=== PATIENT | male | born 1940 | race Caucasian/White ===

== ENCOUNTER 2019-08-08 22:00 | Inpatient (IN) | payer MEDICARE, BC ==
--- NOTE | 2019-08-08 22:28 | ED.PDOC ---
History of Present Illness - General Chief Complaint: Syncope/Near Syncope Stated Complaint: vomiting, short of breath, syncope Time Seen by Provider: 08/08/19 22:04 Source: patient, family - History of Present Illness Initial Comments: 78 her old male presents to the emergency department with his after 2 syncopal episodes with vomiting. The patient had a colonoscopy performed in [place] earlier this morning, it was uneventful and afterwards he ate lunch and as they were driving towards home he complained of a severe headache and vomiting. The reports after his vomiting he "passed out" this lasted for a few seconds and she was able to get him sitting up and then a few minutes later he had another episode where he leaned backwards after vomiting and she saw "bubbles coming out of his throat" and that he appeared to be not breathing. She did palpate a pulse that says that he was diaphoretic and apneic. Her estimation was that this lasted for 45 seconds to a minute and then he coughed and was able to clear his secretions. Following the second episode he was taken to [facility] where he was seen and evaluated. Reportedly on chest x-ray it was normal however while in the department he spiked a fever and a CT of abdomen and pelvis showed a pneumonia. They initially attempted to transfer the patient to [facility] however due to ear holes were unable to accept. They recommended admission for the patient to their hospital and because the only records available were semi-private and the patient's would not be able to stay in the room with him, so they decided to leave and has now presented to our emergency department. He is complaining of a mild headache but denies any other specific symptoms. He denies any history of headaches in the past. He denies any abdominal pain currently. Symptoms are currently mild in severity. Allergies/Adverse Reactions: Allergies NO KNOWN ALLERGY Allergy (Verified 08/08/19 22:23) Review of Systems - Review of Systems Constitutional: States: fever. Denies: weakness EENTM: Denies: nose congestion, throat swelling Respiratory: States: cough, short of breath Cardiology: States: syncope. Denies: chest pain Gastrointestinal/Abdominal: States: nausea, vomiting. Denies: abdominal pain Genitourinary: Denies: dysuria, hematuria Musculoskeletal: Denies: joint swelling, muscle stiffness Skin: Denies: lesions, rash Neurological: States: headache. Denies: numbness, weakness Family Medical History - Family History Mother Family History: Unknown Physical Exam - Physical Exam General Appearance: Agitated, Alert, No apparent distress, Well Developed, Well Nourished Eye Exam: bilateral normal Ears, Nose, Throat: normal ENT inspection, normal pharynx Neck: supple, normal inspection Respiratory: no respiratory distress, no accessory muscle use, crackles - L base Cardiovascular/Chest: regular rate, rhythm, no edema Gastrointestinal/Abdominal: normal bowel sounds, non tender, soft Neurologic: alert, normal mood/affect, oriented x 3, other - Moves all extremities without focal deficits. Skin Exam: normal color, warm/dry Progress - Progress Progress: 08/08/19 22:30 They do not have any of the lab or imaging studies from the previous hospital, so they have been asked to sign a release and the records have been requested from [facility]. 08/08/19 23:15 CT Head results discussed with pt and . Still waiting on ED records from the other facility at this time to make calls about admission. 08/08/19 23:39 The patient's findings from the previous ER as well as a CT head were discussed with Nathan Hong for the hospitalist service here who agrees with plan for admission and continued monitoring. She agrees with continued IV fluids and we discussed clindamycin for antibiotics for possible aspiration. This plan was discussed with the patient and his at the bedside who voice understanding and agree. - Results/Orders Results/Orders: CT Head: IMPRESSION: No acute intracranial findings. Electronically signed by: Ashvin Barton MD 08/08/2019 10:53 PM [employer] Records were obtained from [facility] with the following findings. CBC: WBC 16, hemoglobin 16.2, hematocrit 48.1, platelets 188 CMP: Glucose 90, creatinine 0.9, BUNs 15, sodium 144, potassium 4.0, CO2 25, anion gap 17. Total bili was very mildly elevated at 2.1 the remainder of the liver function tests are within normal limits. Influenza A and B were negative. Initial lactic acid at 1549 was elevated at 3.38, second at 1751 was 1.27 and third at 1949 was 1.17. Lipase 28. PT 13.2, INR 1.0. Initial troponin 1601 was <0.010. Repeat [address] of the abdomen and pelvis with IV contrast demonstrated #1 infiltrates throughout the left mid lung and left lower lobe suspicion for aspiration. #2 no evidence of perforation. Diverticulitis in the colon. #3 subtle 2.2 x 1.9 cm solid appearing mass in the left kidney suspicious for renal cell carcinoma. #4 nonobstructing left renal stone #5 bilateral inguinal hernias 1 view of the abdomen x-ray nonspecific bowel gas pattern without evidence of obstruction. Two-view chest x-ray no acute process. The patient was treated with IV normal saline 2224 mL as well as cefepime and vancomycin. Departure - Departure Clinical Impression: Syncope Qualifiers: Syncope type: unspecified Qualified Code(s): R55 - Syncope and collapse Aspiration pneumonia Qualifiers: Aspiration pneumonia type: due to vomit Laterality: left Lung location: lower lobe of lung Qualified Code(s): J69.0 - Pneumonitis due to inhalation of food and vomit Headache Qualifiers: Headache type: unspecified Headache chronicity pattern: acute headache Intractability: not intractable Qualified Code(s): R51 - Headache Time of Disposition: 23:41 Disposition: Admit Patient Decision To Admit - Decistion To Admit Decision to Admit Date: 08/08/19 Decision to Admit Time: 23:40
--- NOTE | 2019-08-08 22:55 | CT ---
CLINICAL HISTORY: H/A and vomiting COMPARISON: None. TECHNIQUE: CT HEAD WITHOUT IV CONTRAST on 08/08/2019 10:20 PM [employer] TEST TECHNICIAN This exam was performed according to our departmental dose-optimization program, which includes automated exposure control, adjustment of the mA and/or kV according to patient size and/or use of iterative reconstruction technique. FINDINGS: There is no acute hemorrhage, mass effect or midline shift. Cornejo-white differentiation is preserved. There is no hydrocephalus. There is no significant volume loss for age. There are mild patchy hypodensities within the periventricular and subcortical white matter, consistent with microangiopathic ischemic changes. The calvarium is intact. Orbits and globes are unremarkable. The paranasal sinuses are clear. Mastoid air cells are clear. IMPRESSION: No acute intracranial findings. Electronically signed by: Ashvin Barton MD 08/08/2019 10:53 PM [employer] TEST TECHNICIAN
[2019-08-08] MEDS ORDERED: SODIUM CHLORIDE 0.9% 1000ML 1,000 ML IVS PRN (23:42)
[2019-08-08] MEDS ORDERED: CLINDAMYCIN IV 900MG 50 ML IVPB ONE (23:44)
[2019-08-08] MEDS: CLINDAMYCIN IV 900MG 900 MG in PREMIX BAG 1 BAG IVPB SCH (23:50)
[2019-08-09] MEDS ORDERED: ONDANSETRON INJ 4 MG/2 ML VIAL IV PRN (04:10)
[2019-08-09] MEDS ORDERED: ALBUTEROL SULFATE 2.5 MG/3 ML VIAL NEB PRN (04:10)
[2019-08-09] MEDS ORDERED: IV SET AND CAP CHANGE INJ INJ SCH (04:30)
[2019-08-09] MEDS ORDERED: CLINDAMYCIN IV 900MG 0 ML IVPB ONE (05:35)
[2019-08-09] MEDS: levoFLOXacin 750MG IV 750 MG in PREMIX BAG 1 BAG IVPB SCH (06:10)
[2019-08-09] MEDS: CLINDAMYCIN IV 900MG 900 MG in PREMIX BAG 1 BAG IVPB SCH ×3 (07:40→17:41)
[2019-08-09] MEDS ORDERED: CLINDAMYCIN IV 900MG 50 ML IVPB ONE ×2 (07:43→18:33)
[2019-08-09] MEDS: ALBUTEROL SULFATE 2.5 MG/3 ML VIAL NEB SCH ×4 (09:29→20:57)
--- NOTE | 2019-08-09 10:37 | HP ---
SUPERVISING PHYSICIAN: Nick Mariano MD CHIEF COMPLAINT: Syncope. HISTORY OF PRESENT ILLNESS: This is a 78 year-old male patient who came to the Emergency Department after his witnessed two episodes of syncope with vomiting. The patient has gone to [place] to have a colonoscopy. Two days prior to his bowel prep, the patient admitted he had felt some mild chills and some upper respiratory symptoms. He actually had a subjective fever and just was feeling poorly in general but he did attribute that to his bowel prep. He went to [place] on the day prior to admission and had a routine colonoscopy. Reportedly, there were no problems. After the colonoscopy, he was discharged. He and his went to eat lunch. He said the food was somewhat greasy and spicy. After they had eaten, he said he had not felt well, his stomach was somewhat upset and they were driving on their way back to [place] and as they were coming through [place], [place], he actually became somewhat faint and became quite nauseated. He actually projectile vomited in the car and his stopped at a gas station and got cleaned up. Shortly after resuming their trip, he again became nauseated and had another episode of projectile vomiting. Shortly after his episode, his reported that he lost consciousness and was laying back in his seat in the car and he had emesis in his mouth. She pulled over and tried to arouse him. He was slow to come around but eventually woke up and he convinced her to take him to the hospital instead of calling 911. She went to the Emergency Room in [place]. The patient is fairly healthy and has very few medical problems. After waiting several hours in the Emergency Room there, he was admitted for aspiration pneumonia but he was to be admitted to a semi- private room and his would be unable to stay with him. Given the circumstances of his syncope, she was very uneasy with the patient staying by himself in the room without her staying in the room with him so she brought the patient to our Emergency Room. His records from [place] were requested and sent to the hospital. His initial vital signs in the Emergency Room showed a temperature of 97, heart rate 69, blood pressure 122/76, respiratory rate of 18, oxygen saturation 97%. Lab showed WBC of 14,000 with hemoglobin of 12.5, hematocrit 37, he had a left shift on his differential. His electrolytes were basically within normal limits with the exception of calcium at 8.1, total bilirubin 2.3. The patient does have a history of hyperbilirubinemia of unknown etiology. Due to his syncopal episode, a CTof the was also done and showed no acute intracranial findings. He was given some fluids in the Emergency Room as well as started on clindamycin and he was also given some Zofran and I was called for hospital admission. PAST MEDICAL HISTORY: 1. Gastroesophageal reflux disease. 2. Osteoarthritis. 3. Seasonal allergies. 4. Low testosterone. PAST SURGICAL HISTORY: Unknown. CURRENT MEDICATIONS: 1. Prilosec. 2. Arimidex. 3. Testosterone. 4. Vitamin B12. 5. Meloxicam. 6. Fluticasone. ALLERGIES: No known drug allergies. FAMILY HISTORY: SOCIAL HISTORY: He lives in [place], he is . He quit smoking about 50 years ago. He denies any ETOH or illicit drug use. REVIEW OF SYSTEMS: GENERAL: Positive for weakness, fever and chills, negative for weight changes. HEENT: Negative for ear pain, vision changes, sore throat or sinus symptoms. RESPIRATORY: Positive for coughing, shortness of breath. Negative for wheezing. CARDIAC: Negative for chest pain, palpitations, tachycardia. GI: Positive for nausea and vomiting. Negative for diarrhea, constipation. GENITOURINARY: Negative for hematuria, dysuria, polyuria. MUSCULOSKELETAL: Negative for arthralgias, myalgias. SKIN: Negative for lesions or rashes. NEUROLOGICAL: Negative for headaches, seizures or numbness. PHYSICAL EXAMINATION: VITAL SIGNS: Temperature 99.3, heart rate 77, blood pressure 107/57, respiratory rate 18, oxygen saturation 97%. GENERAL: This is a 78 year-old male patient sitting up in his hospital bed. He looks younger than his stated age. HEENT: Normocephalic and atraumatic. Pupils are equal and reactive. Oropharynx clear. NECK: Supple without mass. CHEST: Diminished at the bases, otherwise clear to auscultation. Chest has equal rise and fall with inspiration and expiration. CARDIOVASCULAR: Regular rate and rhythm. ABDOMEN: Soft, non-tender, nondistended. Bowel sounds are positive. EXTREMITIES: No cyanosis, clubbing, or edema. NEUROLOGIC: He is awake, alert, and oriented x3. Cranial nerves II through XII are grossly intact. LABORATORY: Labs and films are as per the history of present illness. ASSESSMENT: 1. Aspiration pneumonia. 2. Loss of consciousness x2 resulting in #1 status post colonoscopy procedure. 3. Upper respiratory with chills and subjective fever x2 days prior to his procedure. 4. Gastroesophageal reflux disease. 5. Seasonal allergies. 6. Osteoarthritis. PLAN: The patient has been admitted to the hospital. I have continued the clindamycin from the Emergency Room as well as added Levaquin. He will have aggressive pulmonary hygiene including p.r.n. and scheduled nebulizer treatments. He has Lovenox for DVT prophylaxis. His home medications are restarted. I have ordered lab and x-ray for in the morning. We will continue to monitor closely and followup as needed. #[id number] [facility]
[2019-08-09] MEDS ORDERED: PANTOPRAZOLE SODIUM IV 40 MG VIAL IV SCH (12:07)
[2019-08-09] MEDS ORDERED: NON-FORMULARY MEDICATION 1 EA MIS (Anastrozole [Arimidex] 1 MG) PO SCH (12:15)
[2019-08-09] MEDS: FLUTICASONE PROP 0.05% NASAL 16 GM BTTL BNAS SCH (13:00)
[2019-08-09] MEDS ORDERED: IBUPROFEN 400 MG TAB PO PRN (19:41)
[2019-08-09] MEDS: ENOXAPARIN SODIUM 40 MG/0.4 ML SYG SUBCU SCH (21:54)
[2019-08-10] MEDS ORDERED: CLINDAMYCIN IV 900MG 50 ML IVPB ONE ×4 (00:01→20:53)
[2019-08-10] MEDS: CLINDAMYCIN IV 900MG 900 MG in PREMIX BAG 1 BAG IVPB SCH ×3 (00:02→18:25)
[2019-08-10] MEDS ORDERED: PANTOPRAZOLE SODIUM TAB 40 MG PO ONE (03:04)
[2019-08-10] MEDS: PANTOPRAZOLE SODIUM TAB 40 MG PO SCH (06:05)
[2019-08-10] MEDS: levoFLOXacin 750MG IV 750 MG in PREMIX BAG 1 BAG IVPB SCH (06:06)
--- NOTE | 2019-08-10 07:47 | RAD ---
CHEST, TWO VIEW, XR CLINICAL HISTORY: Pneumonia COMPARISON: None. TECHNIQUE: PA and lateral Chest. FINDINGS: [Normal cardiac size. Pulmonary vasculature appears normal. Normal cardiomediastinal contours. Lungs are hyperinflated. There is minimal lingula atelectasis/scar. Pleural spaces are clear. Unremarkable soft tissues and bones.] IMPRESSION: 1. No acute chest disease. Electronically signed by: Dayana Mock DO 08/10/2019 7:45 AM [employer]
[2019-08-10] MEDS: ALBUTEROL SULFATE 2.5 MG/3 ML VIAL NEB SCH ×4 (08:48→20:45)
[2019-08-10] MEDS: FLUTICASONE PROP 0.05% NASAL 16 GM BTTL BNAS SCH (09:09)
[2019-08-10] MEDS ORDERED: POTASSIUM CHLORIDE 20 MEQ TAB PO ONE (09:45)
[2019-08-10] MEDS ORDERED: POTASSIUM CHLORIDE 20 MEQ TAB ONE (12:21)
[2019-08-10] MEDS: MELOXICAM 7.5 MG TAB PO SCH (12:43)
[2019-08-10] MEDS ORDERED: ALUMINUM & MAGNESIUM HYDROXIDE 30 ML UD PO PRN (17:52)
[2019-08-10] MEDS: ENOXAPARIN SODIUM 40 MG/0.4 ML SYG SUBCU SCH (21:37)
[2019-08-11] MEDS: SODIUM CHLORIDE 0.9% (FLUSH) 10 ML SYG IV PRN ×2 (00:32→06:03)
[2019-08-11] MEDS: CLINDAMYCIN IV 900MG 900 MG in PREMIX BAG 1 BAG IVPB SCH ×2 (00:32→08:38)
[2019-08-11] MEDS: levoFLOXacin 750MG IV 750 MG in PREMIX BAG 1 BAG IVPB SCH (06:02)
[2019-08-11] MEDS: PANTOPRAZOLE SODIUM TAB 40 MG PO SCH (06:02)
[2019-08-11] MEDS ORDERED: CLINDAMYCIN IV 900MG 50 ML IVPB ONE (07:51)
[2019-08-11] MEDS: MELOXICAM 7.5 MG TAB PO SCH (08:38)
[2019-08-11] MEDS: FLUTICASONE PROP 0.05% NASAL 16 GM BTTL BNAS SCH (08:38)
[2019-08-11] MEDS: ALBUTEROL SULFATE 2.5 MG/3 ML VIAL NEB SCH ×2 (09:00→13:20)
[2019-08-11 09:47] VITALS: BP 132/76; TEMP 97.6; O2SAT 97
--- NOTE | 2019-08-11 10:16 | PN ---
DATE: 08/10/2019 SUPERVISING PHYSICIAN: Nick Mariano MD SUBJECTIVE: The patient is sitting up in bed. His is at the bedside. We discussed his condition and his discharge planning. He denies any shortness of breath but he also has not ambulated much other than to the bathroom. I have encouraged him to get up and walk in the hallways. Also, he also denies chest pain, nausea or vomiting, dizziness or headaches. OBJECTIVE: VITAL SIGNS: Temperature 98.6, heart rate 75, blood pressure 141/72, respiratory rate 18, oxygen saturation 94% on room air. RESPIRATORY: Essentially clear to auscultation bilaterally. He is somewhat diminished in the right middle lobe area. CARDIAC: Regular rate and rhythm. ABDOMEN: Soft, nondistended, non-tender, bowel sounds are positive. NEURO: He is awake, alert, and oriented x3. LABORATORY: WBC 7.1, hemoglobin 11.8, hematocrit 33.8. Electrolytes are basically within normal limits with the exception his potassium is slightly low at 3.4. Bilirubin is improved to 1.1. His chest x-ray shows no acute chest disease. All other labs and films have been reviewed via the EMR. ASSESSMENT: 1. Aspiration pneumonia. 2. Loss of consciousness x2 resulting in #1 status post colonoscopy procedure. 3. Upper respiratory with chills and subjective fever x2 days prior to his procedure. 4. Gastroesophageal reflux disease. 5. Seasonal allergies. 6. Osteoarthritis. 7. Hyperchronic hyperbilirubinemia of unknown etiology. His bilirubin level has improved. PLAN: We will continue present supportive care. At this point, if he continues to improve clinically and has no problems we should be able to discharge him tomorrow. He received some potassium supplementation and I will hold on any labs tomorrow. He will be discharged home on clindamycin and Levaquin and we will continue to monitor him closely and follow as needed. #[id number] [facility]
--- NOTE | 2019-08-16 14:26 | DS ---
SUPERVISING PHYSICIAN: Nick Mariano MD DISCHARGE DIAGNOSIS: 1. Aspiration pneumonia. 2. Loss of consciousness x2 resulting in #1 status post colonoscopy procedure. 3. Upper respiratory with chills and subjective fever x2 days prior to his procedure. 4. Gastroesophageal reflux disease. 5. Seasonal allergies. 6. Osteoarthritis. 7. Chronic hyperbilirubinemia of unknown etiology. His bilirubin level has improved. HISTORY OF PRESENT ILLNESS: This is a 78-year-old male patient who came to the Emergency Department after his witnessed two episodes of syncope with vomiting. The patient has gone to [place] to have a colonoscopy. Two days prior to his bowel prep, the patient admitted he had felt some mild chills and some upper respiratory symptoms. He actually had a subjective fever and just was feeling poorly in general but he did attribute that to his bowel prep. He went to [place] on the day prior to admission and had a routine colonoscopy. Reportedly, there were no problems. After the colonoscopy, he was discharged. He and his went to eat lunch. He said the food was somewhat greasy and spicy. After they had eaten, he said he had not felt well, his stomach was somewhat upset and they were driving on their way back to [place] and as they were coming through [place], [place], he actually became somewhat faint and became quite nauseated. He actually projectile vomited in the car and his stopped at a gas station and got cleaned up. Shortly after resuming their trip, he again became nauseated and had another episode of projectile vomiting. Shortly after his episode, his reported that he lost consciousness and was laying back in his seat in the car and he had emesis in his mouth. She pulled over and tried to arouse him. He was slow to come around but eventually woke up and he convinced her to take him to the hospital instead of calling 911. She went to the Emergency Room in [place]. The patient is fairly healthy and has very few medical problems. After waiting several hours in the Emergency Room there, he was admitted for aspiration pneumonia but he was to be admitted to a semi- private room and his would be unable to stay with him. Given the circumstances of his syncope, she was very uneasy with the patient staying by himself in the room without her staying in the room with him so she brought the patient to our Emergency Room. His records from [place] were requested and sent to the hospital. His initial vital signs in the Emergency Room showed a temperature of 97, heart rate 69, blood pressure 122/76, respiratory rate of 18, oxygen saturation 97%. Lab showed WBC of 14,000 with hemoglobin of 12.5, hematocrit 37, he had a left shift on his differential. His electrolytes were basically within normal limits with the exception of calcium at 8.1, total bilirubin 2.3. The patient does have a history of hyperbilirubinemia of unknown etiology. Due to his syncopal episode, a CT of the was also done and showed no acute intracranial findings. He was given some fluids in the Emergency Room as well as started on clindamycin and he was also given some Zofran and I was called for hospital admission. HOSPITAL COURSE: The patient was admitted to the hospital. I have continued the clindamycin and added Levaquin. The pneumonia guidelines were initiated and he had aggressive pulmonary hygiene including p.r.n. and scheduled nebulizer treatments. He also had Lovenox for DVT prophylaxis. His home medications were restarted. He improved clinically over the next 24 hours as well as his respiratory issues improved. His main complaint was that he had a burning in his throat and was given some Maalox. He was encouraged to ambulate in the hallway. He received potassium supplementation and then was able to walk in the hallways without shortness of breath or oxygen. He will be discharged home today in stable condition. LABORATORY: Laboratory and radiology studies from [place] had been scanned into his chart and can be reviewed there. Additional laboratory studies showed a WBC 14,000 and improved to 7,100. Hemoglobin stable at 11.8, hematocrit 33.8. Chemistries are within normal limits with potassium low which he received supplementation. Bilirubin was high on admission at 2.3 and improved to 1.1. He does have a history of hyperbilirubinemia. RADIOLOGY: Chest x-ray showed no acute chest disease. DISCHARGE PLAN: The patient will be discharged home in stable condition. He is to resume his previous diet and increase his activity as tolerated. In addition to his routine home medications, he is to take a probiotic twice daily as well as to take clindamycin and Levaquin. He is to followup with his primary care physician in the next 1 to 2 weeks. He is to return to the hospital or followup with his primary care physician for any problems or complications. DISCHARGE MEDICATIONS: 1. Meloxicam. 2. Arimidex. 3. Omeprazole. 4. Flonase nasal spray. 5. Cyanocobalamin. 6. Testosterone Enanthate. 7. Maalox. 8. Align. 9. Clindamycin. 10. Levaquin. #[id number] [facility]
== END 2019-08-11 12:25 | disposition home or self-care (01) | DRG 179 ==
LOC: ER 22:00 → OBSVTOIN 08-09 00:01 → MS 08-09 00:01
PROVIDERS: ADMIT Nurse Practitioner Acute Care; ATTEND Nurse Practitioner Acute Care
DX: J69.0 Pneumonitis due to inhalation of food and vomit (principal); E87.6 Hypokalemia; R55 Syncope and collapse; R51 Headache; K21.9 Gastro-esophageal reflux disease without esophagitis; J30.2 Other seasonal allergic rhinitis; M19.90 Unspecified osteoarthritis, unspecified site; E80.6 Other disorders of bilirubin metabolism; E29.1 Testicular hypofunction; Z98.890 Other specified postprocedural states; Z79.1 Long term (current) use of non-steroidal anti-inflammatories (NSAID); Z79.899 Other long term (current) drug therapy; Z87.891 Personal history of nicotine dependence

== ENCOUNTER → 2019-09-17 | Outpatient (CLI) | payer MEDICARE | LOC: GMA MATASK 16:56 | PROVIDERS: ATTEND Family Medicine | DX: K21.0 Gastro-esophageal reflux disease with esophagitis (principal) ==

== ENCOUNTER → 2020-01-08 | Outpatient (CLI) | payer MEDICARE | LOC: GMA MATASK 10:44 | PROVIDERS: ATTEND Family Medicine | DX: Z12.5 Encounter for screening for malignant neoplasm of prostate (principal); R53.83 Other fatigue; Z13.6 Encounter for screening for cardiovascular disorders | CPT/HCPCS: 84443; 84550; G0103 ==

== ENCOUNTER 2020-01-16 22:53 | Emergency (ER) | payer MEDICARE ==
[2020-01-16] MEDS ORDERED: KETOROLAC TROMETHAMINE INJ 30 MG/ML VIAL ONE (23:15)
[2020-01-16] MEDS ORDERED: KETOROLAC TROMETHAMINE INJ 30 MG/ML VIAL IV ONE (23:18)
[2020-01-16] MEDS ORDERED: SODIUM CHLORIDE 0.9% 1000ML 1,000 ML IVS ONE (23:27)
[2020-01-16] MEDS ORDERED: TAMSULOSIN 0.4 MG CAP PO ONE (23:27)
[2020-01-16] MEDS ORDERED: PROMETHAZINE HCL INJ 25 MG in SODIUM CHLORIDE 0.9% 50ML 50 ML IVPB ONE (23:27)
[2020-01-16] MEDS ORDERED: HYDROcodone 7.5MG/APAP 325MG 1 EA TAB PO ONE (23:45)
[2020-01-17] MEDS ORDERED: HYDROmorphone HCL INJ 2 MG/ML VIAL IV ONE ×2 (00:46→01:21)
--- NOTE | 2020-01-17 01:00 | ED.PDOC ---
History of Present Illness - General Chief Complaint: Problem Time Seen by Provider: 01/16/20 23:26 Source: patient Exam Limitations: no limitations - History of Present Illness Initial Comments: The patient is a 79-year-old male presenting to the emergency room secondary to left flank pain that actually started more in the lower left abdomen but gradually moved to the left flank. He has had some nausea with it. Pain did get very severe. He did have diaphoresis. He had pain radiating down to the groin and testicle. Pain started about 5 hours prior to arrival. Patient had urinary frequency with minimal urine output. No symptoms prior. No history of kidney stones prior. Timing/Duration: 4-6 hours Severity: severe Improving Factors: nothing Worsening Factors: nothing Associated Symptoms: diaphoresis, nausea/vomiting Allergies/Adverse Reactions: Allergies NO KNOWN ALLERGY Allergy (Verified 08/10/19 01:48) Home Medications: Ambulatory Orders Anastrozole [Arimidex] 1 mg PO MOWEFR 08/09/19 Cyanocobalamin Inj [Vitamin B-12 Inj] 1,000 mcg IM WKLY 08/09/19 Fluticasone Prop 0.05% Nasal [Flonase Nasal [place]] 1 puff ALVA DAILY 08/09/19 Meloxicam 15 mg PO DAILY 08/09/19 Omeprazole 20 mg PO DAILY 08/09/19 Testosterone Enanthate [Xyosted] 80 mg SC WKLY 08/09/19 Aluminum & Magnesium Hydroxide [Maalox] 30 ml PO Q4H PRN ud 08/11/19 Bifidobacterium Infantis [Align] 4 mg PO BID #60 capsule 08/11/19 Clindamycin HCl [Cleocin] 600 mg PO Q8H #48 capsule 08/11/19 levoFLOXacin [Levaquin] 500 mg PO DAILY #5 tab 08/11/19 Tamsulosin HCl [Flomax] 0.4 mg PO DAILY #7 cap 01/17/20 Tramadol HCl 50 mg PO Q8HR PRN #20 tab 01/17/20 Review of Systems - Review of Systems Constitutional: States: no symptoms reported EENTM: States: no symptoms reported Respiratory: States: no symptoms reported Cardiology: States: no symptoms reported Gastrointestinal/Abdominal: States: abdominal pain, nausea Genitourinary: States: no symptoms reported Musculoskeletal: States: back pain Skin: States: no symptoms reported Neurological: States: no symptoms reported Endocrine: States: no symptoms reported All other Systems: No Change from Baseline Past Medical History (General) - Patient Medical History Hx Seizures: No Hx Stroke: No Hx Dementia: No Hx Asthma: No Hx of COPD: No Hx Cardiac Disorders: No Hx Congestive Heart Failure: No Hx Pacemaker: No Hx Hypertension: No Hx Thyroid Disease: No Hx Diabetes: No Hx Gastroesophageal Reflux: Yes Hx Renal Disease: No Hx Cancer: No Hx of HIV: No Hx Hepatitis C: No Hx MRSA: No Surgical History: cholecystectomy, other - Vaccination History Hx Tetanus, Diphtheria Vaccination: Yes Hx Influenza Vaccination: Yes Hx Pneumococcal Vaccination: Yes - Social History Hx Tobacco Use: Yes Hx Chewing Tobacco Use: No Hx Alcohol Use: No Hx Substance Use: No Hx Substance Use Treatment: No Hx Depression: No Feels Threatened In Home Enviroment: No Feels Threatened In a Relationship: No Hx Physical Abuse: No Hx Emotional Abuse: No Hx Suspected Abuse: No - Female History Patient is a Female of Child Bearing Age (10 -59 yrs old): No - Triage Comment ED Triage Comment: The patient was in obvious discomfort and compalining of left flank pain and nausea. Family Medical History - Family History Mother Family History: Unknown Physical Exam - Physical Exam General Appearance: Alert, Obvious distress Eye Exam: bilateral normal Ears, Nose, Throat: hearing grossly normal Neck: non-tender, supple Respiratory: no respiratory distress, no accessory muscle use Cardiovascular/Chest: normal peripheral pulses, no edema Peripheral Pulses: radial,right: 2+, radial,left: 2+ Gastrointestinal/Abdominal: non tender, soft Rectal Exam: deferred Back Exam: CVA tenderness (L) Extremity: normal range of motion, non-tender, normal inspection, no pedal e tejal, normal capillary refill 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 Symptoms as well as urinalysis are consistent. The patient has received several doses of pain m edications along with Toradol and nausea medications. He is relaxing more comfortably at this time. He also received a dose of Flomax and Valium for muscle relaxing purposes along with IV fluids. The patient will be discharged with a few tablets of hydrocodone for use for the rest of the night and will have a prescription for tramadol for outpatient use for pain control. Additionally Aleve can be used to help reduce discomfort over the coming days and he will be written for a weeks worth of Flomax to aid in passage of the stone. Obviously if his condition is worsening rather than improving, then additional work-up may be warranted. He is to otherwise keep routine follow-up with his primary care doctor. ER warnings are given. jaymie goodwin [phone] 01/17/20 02:26 [facility] consulted - Results/Orders Results/Orders: 01/16/20 23:15 EKG STAT shows sinus bradycardia at 48 bpm. Normal axis. Normal R wave progression. No definitive ST segment or T wave changes indicative of acute ischemia. criteria is present for LVH. Normal QT interval. Laboratory Results - last 24 hr 01/17/20 00:10 Urine Color Yellow Urine Appearance Sl cloudy Urine pH 5.5 Ur Specific [place] >= 1.030 Urine Protein 30 Urine Glucose (UA) Negative Urine Ketones 80 H Urine Blood Large H Urine Nitrite Negative Urine Bilirubin Negative Urine Urobilinogen 0.2 Ur Leukocyte Esterase Negative Urine RBC 30-40 H Urine WBC 1-3 Ur Epithelial Cells 0 Urine Bacteria 0 Urine Mucus Moderate Urine Yeast 1+ budding Departure - Departure Clinical Impression: Calcium ureterolithiasis Disposition: Discharge to Home or Self Care Condition: Fair Departure Forms: ED Discharge - Pt. Copy, Patient Portal Self Enrollment Instructions: DI for Kidney Stones Diet: regular diet Activity: increase activity as tolerated Referrals: Gautam Harding MD [Primary Care Provider] - 1-2 Weeks Prescriptions: Tramadol HCl 50 mg PO Q8HR PRN #20 tab PRN Reason: Moderate Pain Tamsulosin HCl [Flomax] 0.4 mg PO DAILY #7 cap Home Medications: Ambulatory Orders Anastrozole [Arimidex] 1 mg PO MOWEFR 08/09/19 Cyanocobalamin Inj [Vitamin B-12 Inj] 1,000 mcg IM WKLY 08/09/19 Fluticasone Prop 0.05% Nasal [Flonase Nasal [place]] 1 puff ALVA DAILY 08/09/19 Meloxicam 15 mg PO DAILY 08/09/19 Omeprazole 20 mg PO DAILY 08/09/19 Testosterone Enanthate [Xyosted] 80 mg SC WKLY 08/09/19 Aluminum & Magnesium Hydroxide [Maalox] 30 ml PO Q4H PRN ud 08/11/19 Bifidobacterium Infantis [Align] 4 mg PO BID #60 capsule 08/11/19 Clindamycin HCl [Cleocin] 600 mg PO Q8H #48 capsule 08/11/19 levoFLOXacin [Levaquin] 500 mg PO DAILY #5 tab 08/11/19 Tamsulosin HCl [Flomax] 0.4 mg PO DAILY #7 cap 01/17/20 Tramadol HCl 50 mg PO Q8HR PRN #20 tab 01/17/20 Additional Instructions: The patient the patient is a 79-year-old male presented emergency room with renal colic secondary to left-sided ureterolithiasis. Symptoms as well as urinalysis are consistent. The patient has received several doses of pain medications along with Toradol and nausea medications. He is relaxing more comfortably at this time. He also received a dose of Flomax and Valium for muscle relaxing purposes along with IV fluids. The patient will be discharged with a few tablets of hydrocodone for use for the rest of the night and will have a prescription for tramadol for outpatient use for pain control. Additionally Aleve can be used to help reduce discomfort over the coming days and he will be written for a weeks worth of Flomax to aid in passage of the stone. Obviously if his condition is worsening rather than improving, then additional work-up may be warranted. He is to otherwise keep routine follow-up with his primary care doctor. ER warnings are given.
[2020-01-17] MEDS ORDERED: KETOROLAC TROMETHAMINE INJ 30 MG/ML VIAL IV ONE (01:05)
[2020-01-17 01:08] VITALS: O2SAT 99
[2020-01-17 01:46] VITALS: TEMP 97.8
[2020-01-17] MEDS: diazePAM 5 MG TAB PO ONE ×2 (02:29→02:45)
[2020-01-17] MEDS ORDERED: HYDROCOD/APAP 10/325 (ER DISP) # 3 tablets ONE (02:32)
[2020-01-17] MEDS ORDERED: HYDROCOD/APAP 10/325 (ER DISP) # 3 tablets PO PRN (02:32)
[2020-01-17 02:38] VITALS: BP 150/71
--- NOTE | 2020-01-17 12:35 | US ---
EXAM DESCRIPTION: Abdomen,Complete: Ultrasound. CLINICAL HISTORY: 79 years MaleOTHER FATIGUE COMPARISON: None Available. TECHNIQUE: Transabdominal scanning: grayscale and Doppler modes. FINDINGS: Gallbladder: Cholecystectomy with no fluid in Morison's pouch. Nontender with transducer pressure. Common bile duct: 4.9 mm normal caliber. Liver: Normal echogenicity with long axis right lobe 14.4 cm. Physiologic portal vein flow with 1 cm caliber at the regi hepatis. Ducts not dilated. Smooth capsule with no ascites. No focal lesions. Pancreas: Normal size and echogenicity with duct not seen.. Abdominal aorta: Normal caliber from the proximal segment to the distal bifurcation. IVC: visualized; normal caliber. Spleen normal echogenicity; long axis measurement is 10.8 cm. Right kidney: 10.6 cm long axis with physiologic appearance of the cortex. No echogenic stones or hydronephrosis. Left kidney: 10.7 cm long axis with physiologic appearance of the cortex. No echogenic stones or hydronephrosis. IMPRESSION: 1. Liver and pancreas are unremarkable. No ascites. Prior cholecystectomy. Normal caliber of the common bile duct. 2. Negative findings spleen, and bilateral kidneys. Normal caliber of the abdominal aorta and IVC. Electronically signed by: Pio Mcarthur MD 01/17/2020 12:33 PM CDT
== END 2020-01-17 02:57 | disposition home or self-care (01) ==
LOC: ER 22:53
DX: N20.1 Calculus of ureter (principal); R11.2 Nausea with vomiting, unspecified; Z87.891 Personal history of nicotine dependence
CPT/HCPCS: 81001; 93005; A4216; J1170; J1885; J2550; J7030

== ENCOUNTER → 2020-05-11 | Outpatient (CLI) | payer MEDICARE ==
--- NOTE | 2020-05-12 10:24 | MRI ---
EXAM DESCRIPTION: Cervical Spine w/wo Contrast CLINICAL HISTORY: CERVICALGIA COMPARISON: None. TECHNIQUE: Multiplanar MRI of the cervical spine was performed with and without without contrast. FINDINGS: Cervical vertebral body heights are maintained. Straightening of the normal cervical lordosis. No marrow replacing process. The craniocervical junction is maintained. A normal basilar flow void is seen. Spinal cord shows normal MRI signal. No abnormal enhancement is identified. Desiccation of the disc spaces throughout the cervical spine are seen. Mild anterior disc bulging and marginal endplate osteophytes from C4 through C7. C1-2 and craniocervical junction Unremarkable C2-3 Mild left greater than right facet hypertrophic and degenerative changes. No spinal canal stenosis or foraminal encroachment. C3-4 No significant findings. C4-5 Mild disc space narrowing. Mild right greater than left uncovertebral joint disc osteophytic ridging. Mild right foraminal encroachment. C5-6 No significant findings. C6-7 Mild diffuse disc space narrowing is seen. Less than 2 mm broad-based ventral ridging disc osteophyte complex with uncovertebral joint disc osteophytic ridging. Mild spinal canal stenosis. At least mild right greater than left foraminal encroachment is seen. C7-T1 No significant findings. 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 Mild right foraminal encroachment is seen at C4-5 with mild right greater than left foraminal encroachment at C6-7. Nonspecific straightening of the normal cervical lordosis could be secondary to patient positioning or muscle spasm. Electronically signed by: Simón Singletary MD 05/12/2020 10:23 AM CDT
== END ==
LOC: MRI 13:00
PROVIDERS: ATTEND Family Medicine
DX: Z01.812 Encounter for preprocedural laboratory examination (principal); M50.321 Other cervical disc degeneration at C4-C5 level; M50.323 Other cervical disc degeneration at C6-C7 level; M40.50 Lordosis, unspecified, site unspecified